=== PATIENT | female | born 1950 | race Caucasian/White ===

== ENCOUNTER → 2016-10-23 10:36 | Outpatient (CLI) | payer MEDICARE, OTHER | END | disposition home or self-care (01) | LOC: D.CT 10:36 | DX: I89.9 Noninfective disorder of lymphatic vessels and lymph nodes, unspecified (principal) ==

== ENCOUNTER → 2016-11-21 19:16 | Outpatient (CLI) | payer MEDICARE, OTHER ==
[2016-11-21 20:06] LABS: CHOL - HDL RATIO 5.1 ratio (2.3-4.1); LDL-HDL RATIO 3.3 ratio (1.5-3.5)
== END | disposition home or self-care (01) ==
LOC: D.LABREF 19:16
PROVIDERS: Internal Medicine Cardiovascular Disease
DX: Z00.00 Encounter for general adult medical examination without abnormal findings (principal); R07.9 Chest pain, unspecified